=== PATIENT | male | born 1980 | race Caucasian/White ===

== ENCOUNTER 2022-04-28 08:19 | Emergency (ER) | payer OTHER, SELFPAY ==
--- NOTE | ~2022-04-28 | CT_ITS ---
EXAMINATION: CTA chest abdomen pelvis DATE: 04/28/2022 09:47 CDT INDICATION: Epigastric pain. Syncope. TECHNIQUE: Computed tomographic angiography (CTA) of the chest, abdomen, and pelvis was performed wit h 100 mL Omnipaque-350 intravenous contrast. The dose-length product was 1166.15 mGy-cm. Maximum inte nsity projection 3D-reconstructions of the aorta and other arteries were constructed by the technolog ist on a separate workstation. Automated exposure control and iterative reconstruction technique were employed. COMPARISON: None. FINDINGS: CHEST CTA: Normal caliber aorta without evidence for aneurysm or dissection. Enlarged heterogeneous left thyroid gland, likely secondary to multinodular goiter. Multiple ill-defined masses. Consider correlation thyroid ultrasound. No thoracic lymphadenopathy. No significant pleural or pericardial effusion. N o focal airspace consolidation. There is mild emphysema. No endobronchial lesions. There is dependent atelectasis. There is mild thoracic and lumbar spondylosis. Mild wedge deformities of T11, T12 and L 1, likely chronic. ABDOMEN AND PELVIS CTA: The liver, spleen, pancreas, adrenal glands and kidneys are unremarkable. Gallbladder is present. No evidence for aortic aneurysm or dissection. Small fat-containing left inguinal hernia. Nonobstructive bowel gas pattern. Colonic diverticulosis without evidence for diverticulitis. Gallbladder is presen t. Small sclerotic lesions in the pelvis and right femur, likely benign bone islands. IMPRESSION: 1. No acute abnormality of the chest, abdomen or pelvis. No evidence for aortic aneurysm or dissectio n. Reviewed, dictated and finalized at location A. IMPRESSION: 1. No acute abnormality of the chest, abdomen or pelvis. No evidence for aortic aneurysm or dissection.
[2022-04-28 08:25] VITALS: BP 149/69; PULSE 72; RESP 18; TEMP 36.7; O2SAT 99
--- NOTE | 2022-04-28 08:46 | ECG_ITS ---
Measurements Intervals [place] Rate: 64 P: 69 ND: 140 QRS: 66 QRSD: 96 T: 70 QT: 405 QTc: 419 Interpretive Statements SINUS RHYTHM BASELINE ARTIFACT- I, III, AVR, AVL NORMAL ECG NO PREVIOUS ECG AVAILABLE FOR COMPARISON Electronically Signed On 04-28-2022 9:28:10 CDT by Jacob Baca D.O.
[2022-04-28] MEDS: ONDANSETRON INJ 4 MG/2 ML VIAL IV PUSH (08:54)
[2022-04-28] MEDS: HYDROmorphone HCL INJ (*CRX) 1 MG/ML SYR 0.5 MG IV PUSH (08:54)
[2022-04-28 08:57] VITALS: BP 117/74; PULSE 63; RESP 22; O2SAT 100
[2022-04-28 09:10] LABS: Basophils Absolute Auto 0.1 K/mm3 (0.0-0.1); Basophils Percent Auto 0.8 % (0.2-1.2); Eosinophils Absolute Auto 0.2 K/mm3 (0-0.3); Eosinophils Percent Auto 3.2 % (0-4.4); Hemoglobin 15.2 g/dL (14.0-18.0); Immature Granulocyte Absolute 0.03 K/mm3 (0.00-0.031); Immature Granulocyte Percent A 0.4 % (0-0.5); Lymphocytes Absolute Auto 2.45 K/mm3 (0.9-3.2); Lymphocytes Percent Auto 32.2 % (18.3-44.2); Mean Corpuscular HGB Conc 34.5 g/dl (32-36); Mean Corpuscular Hemoglobin 31.9 pg (26-34); Mean Corpuscular Volume 92.4 fl (80-100); Mean Platelet Volume 9.6 fl (7.4-10.4); Monocytes Absolute Auto 0.8 K/mm3 (0.1-0.6); Monocytes Percent Auto 10.5 % (2.6-8.5); Neutrophils Percent Auto 52.9 % (45.5-73.1); Platelet Count Result 224 k/mm3 (150-375); Red Blood Count 4.76 M/mm3 (4.6-6.20); Red Cell Distribution Width 12.4 % (11.5-14.5); White Blood Count 7.6 K/mm3 (4.5-10.0)
[2022-04-28 09:19] LABS: Alanine Aminotransferase 50 U/L (6-50); Albumin Level 4.4 g/dL (3.5-5.1); Alkaline Phosphatase 74 U/L (38-126); Anion Gap 9 mmol/L (8-16); Aspartate Amino Transferase 41 U/L (17-59); Bilirubin,Total 0.5 mg/dL (0.2-1.3); Blood Urea Nitrogen 19 mg/dL (9-20); Calcium 8.9 mg/dL (8.4-10.2); Carbon Dioxide 27 mmol/L (22-30); Chloride 104 mmol/L (98-107); Estimated CRCL calculation 109 ml/min; Estimated Glomerular Filt Rate > 60; Glucose 128 mg/dL (65-110); Potassium 3.8 mmol/L (3.4-5.0); Sodium 140 mmol/L (137-145)
[2022-04-28 09:22] LABS: INR 1.1; Prothrombin Time 13.3 Seconds (11.1-14.7)
[2022-04-28 09:23] LABS: Partial Thromboplastin Time 25.1 SECONDS (22.3-36.8)
[2022-04-28 09:31] LABS: Troponin I < 0.012 ng/mL (0.000-0.034)
[2022-04-28 10:50] LABS: Appearance Urine Clear (Clear); Bilirubin Urine Negative (Negative); Blood Urine Negative (Negative); Color Urine Yellow (Yellow); Glucose Urine UA Negative (Negative); Ketones Urine Negative (Negative); Leukocyte Esterase Ur Negative LEU/UL (Negative); Nitrate Urine Negative (Negative); Protein Urine Negative (Negative); Urobilinogen Urine 0.2 mg/dL (<2.0); pH Urine 5.5 (5.0-9.0)
--- NOTE | 2022-04-28 11:02 | ED.ABDPAIN ---
HPI - Abdominal Pain General Chief Complaint: Abdominal Pain Stated Complaint: upper abd pain Time Seen by Provider: 04/28/22 08:39 History of Present Illness HPI narrative: Pt presents with epigastric abdominal pain which started last night. Pain does not radiate to back or chest. Pt is not vomiting. Pt had syncopal episode after waive of pain this morning. Pt says pain is sharp and burning. Nothing makes it better or worse. Related Data Allergies Allergy/AdvReac Type Severity Reaction Status Date / Time aspirin AdvReac Nose Bleed Verified 01/29/22 10:59 Review of Systems Review of Systems: All systems reviewed & are unremarkable except as noted in HPI and below PMFSH Past Medical History Medical History (Updated 04/28/22 @ 11:08 by Trae Jones III, DO) Arthritis Social History Social History (System 01/29/22 @ 10:59 by Yasir Sykes) Smoking packs per day: 1 Smoking cigarettes per day: 20.0 Smoking status: Current every day smoker Tobacco type: cigarettes Alcohol intake: current Alcohol use details: Drinks socially. Exam Const: General: healthy appearing Nutritional Appearance: well nourished Orientation/consciousness: patient oriented x3 Limitations: no limitations Eyes: Conjunctivae: conjunctivae normal EOM: EOMs intact bilaterally Neck: Neck: normal visual inspection, no lymphadenopathy and no meningeal signs Chest: Chest palpation & inspection: normal inspection of the chest Resp: Effort & Inspection: normal respiratory effort Auscultation: clear to auscultation bilaterally Cardio: Rate: regular rate Rhythm: regular rhythm GI: GI Palp: Yes Soft to palpation and Yes Tenderness to palpation present (GI) (epigastric ) Auscultation: normal bowel sounds : General: Yes no CVA tenderness Skin: General skin exam: normal color Rashes: no rashes Wounds: no wounds Neuro: General: patient oriented x3, moves all extremities, no meningeal signs and no focal motor deficits Cranial nerves: Yes Nystagmus not present Speech: normal speech Gait exam (Neuro): Normal gait present Extrem: General: normal to inspection and no clubbing, cyanosis or edema Psych: Mental Status: mental status grossly normal Affect: normal affect Attitude: cooperative Course Course Emergency Course: pain resolved after dilaudid Vital Signs Vital signs: Vital Signs Temperature 98.1 F 04/28/22 08:25 Pulse Rate 72 04/28/22 08:25 Respiratory Rate 18 09/19/22 08:25 Blood Pressure 149/69 H 04/28/22 08:25 Pulse Oximetry 99 04/28/22 08:25 Oxygen Delivery Room Air 04/28/22 08:25 Temperature 98.1 F 04/28/22 08:25 Pulse Rate 72 04/28/22 11:21 Respiratory Rate 18 04/28/22 11:21 Blood Pressure 120/70 04/28/22 11:21 Pulse Oximetry 99 04/28/22 11:21 Oxygen Delivery Room Air 04/28/22 08:25 MDM - Abdominal Pain Lab Data Result diagrams: 04/28/22 09:04 04/28/22 09:04 Labs: Lab Results 04/28/22 04/28/22 04/28/22 Range/Units 09:04 09:04 09:04 WBC 7.6 (4.5-10.0) K/mm3 RBC 4.76 (4.6-6.20) M/mm3 Hgb 15.2 (14.0-18.0) g/dL Hct 44.0 (42.0-52.0) % MCV 92.4 (80-100) fl MCH 31.9 (26-34) pg MCHC 34.5 (32-36) g/dl RDW 12.4 (11.5-14.5) % Plt Count 224 (150-375) k/mm3 MPV 9.6 (7.4-10.4) fl Immature Gran % (Auto) 0.4 (0-0.5) % Neut % (Auto) 52.9 (45.5-73.1) % Lymph % (Auto) 32.2 (18.3-44.2) % [place] % (Auto) 10.5 H (2.6-8.5) % Eos % (Auto) 3.2 (0-4.4) % Baso % (Auto) 0.8 (0.2-1.2) % Lymph # (Auto) 2.45 (0.9-3.2) K/mm3 [place] # (Auto) 0.8 H (0.1-0.6) K/mm3 Eos # (Auto) 0.2 (0-0.3) K/mm3 Baso # (Auto) 0.1 (0.0-0.1) K/mm3 Abs Immat Gran (auto) 0.03 (0.00-0.031) K/mm3 Absolute Neuts (auto) 4.0 (1.3-6.7) K/mm3 Absolute Nucleated RBC 0.0 (0.0-0.012) K/mm3 Nucleated RBC % 0.0 (0.0-0.2) % PT 13.3 (11.1-14.7) Seconds INR
[2022-04-28 11:09] LABS: Add Urine Microscopic? NO
[2022-04-28 11:21] VITALS: BP 120/70; PULSE 72; RESP 18; O2SAT 99
== END 2022-04-28 11:22 | disposition home or self-care (01) ==
PROVIDERS: Emergency Provider Emergency Medicine
DX: K29.70 Gastritis, unspecified, without bleeding (principal); R55 Syncope and collapse; M19.90 Unspecified osteoarthritis, unspecified site; F17.210 Nicotine dependence, cigarettes, uncomplicated
CPT/HCPCS: 36415; 71275; 74174; 80053; 81003; 84484; 85025; 85610; 85730; 93005; 96374; 96375; 99284; J1170; J2405; Q9967

== ENCOUNTER 2023-08-10 14:10 | Emergency (ER) | payer OTHER, SELFPAY ==
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
[2023-08-10 14:12] VITALS: BP 122/89; PULSE 69; RESP 16; O2SAT 100
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
[2023-08-10] MEDS: CEPHALEXIN 500 MG CAPSULE PO (15:37)
[2023-08-10 15:40] VITALS: BP 117/77; PULSE 81; RESP 18; O2SAT 100
== END 2023-08-10 15:42 | disposition home or self-care (01) ==
PROVIDERS: Emergency Provider Emergency Medicine
DX: S09.90XA Unspecified injury of head, initial encounter (principal); M19.90 Unspecified osteoarthritis, unspecified site; F17.210 Nicotine dependence, cigarettes, uncomplicated; E04.1 Nontoxic single thyroid nodule; Y00.XXXA Assault by blunt object, initial encounter
CPT/HCPCS: 70450; 72125; 99284; A9270